=== PATIENT | male | born 1980 | race African-American/Black ===

== ENCOUNTER 2019-09-16 17:27 | Emergency (ER) | payer SELFPAY ==
[~2019-09-16] VITALS: Ht 182.9 cm; Wt 77.3 kg
[2019-09-16 17:28] VITALS: TEMP 98.1
[2019-09-16] MEDS ORDERED: PERCOCET 325 MG1 TAB PO (17:35)
[2019-09-16] MEDS ORDERED: NORCO 325 MG-101 TAB PO (18:34)
[2019-09-16 18:51] VITALS: BP 132/81; PULSE 82
== END 2019-09-16 18:50 | disposition home or self-care (01) ==
LOC: COL.ER 17:27
DX: S13.4XXA Sprain of ligaments of cervical spine, initial encounter (principal); S33.9XXA Sprain of unspecified parts of lumbar spine and pelvis, initial encounter; F17.210 Nicotine dependence, cigarettes, uncomplicated; V43.62XA Car passenger injured in collision with other type car in traffic accident, initial encounter

== ENCOUNTER 2019-10-05 13:22 | Emergency (ER) | payer SELFPAY ==
[~2019-10-05] VITALS: Ht 182.9 cm; Wt 81.8 kg
[~2019-10-05 13:22] MED LIST: NORCO 325 MG-101 TAB PO; PERCOCET 325 MG1 TAB PO
[2019-10-05 13:29] VITALS: BP 114/76; TEMP 98.7
[2019-10-05] MEDS ORDERED: FLEXERIL 1010 MG/TAB PO (16:08)
[2019-10-05] MEDS ORDERED: NAPROSYN500 MG PO (16:08)
[2019-10-05 16:21] VITALS: PULSE 61
== END 2019-10-05 16:21 | disposition home or self-care (01) ==
LOC: COL.ER 13:22
DX: S39.012A Strain of muscle, fascia and tendon of lower back, initial encounter (principal); S16.1XXA Strain of muscle, fascia and tendon at neck level, initial encounter; V49.49XA Driver injured in collision with other motor vehicles in traffic accident, initial encounter
CPT/HCPCS: J1885